=== PATIENT | female | born 1980 | race Two or more races ===

== ENCOUNTER 2017-12-14 11:49 | Outpatient (CLI) | payer OTHER ==
--- NOTE | 2017-12-14 14:04 | Diagnostic Imaging Report ---
Pelvic ultrasound HISTORY: Pain, uterine fibroids Prior exams are not available for comparison. Transabdominal and transvaginal sonographic technique utilized. There is a normal uterine size (8.5 x 4.9 x 5.9 cm). A subcentimeter heterogeneous focus noted within the lower mid uterine wall that may represent a small leiomyoma. No other definite focal lesions are seen. The atrium is thickened (14.1 mm). The right ovary measures approximately 2.6 x 3.5 x 3.1 cm. Subcentimeter cysts are noted. The left ovary measures 3.0 x 3.4 x 2.1 cm. Subcentimeter cysts are seen. Small amount of free fluid noted in the cul-de-sac region of the pelvis. IMPRESSION: 1. Normal uterine size. Subcentimeter focus as described above consistent with fibroid formation 2. Findings consistent with bilateral ovarian inflicted changes 3. Small amount of fluid within the cul-de-sac region of the pelvis. The findings may be on a physiologic basis and should be correlated clinically and with the menstrual status.
== END 2017-12-14 12:15 | disposition home or self-care (01) ==
LOC: RAD 11:49
DX: R10.2 Pelvic and perineal pain (principal)
CPT/HCPCS: 76856-TC